=== PATIENT | male | born 1935 | race Caucasian/White ===

== ENCOUNTER 2016-04-25 | Outpatient (CLI) | payer MEDICARE, OTHER | END 2016-04-25 13:01 | disposition home or self-care (01) ==

== ENCOUNTER 2016-05-08 | Outpatient (CLI) | payer MEDICARE, OTHER | END 2016-05-08 11:01 | disposition home or self-care (01) ==

== ENCOUNTER 2016-06-13 10:45 | Outpatient (CLI) | payer MEDICARE, OTHER | END 2016-06-13 10:46 | disposition home or self-care (01) | DX: Z51.5 Encounter for palliative care (principal); L89.890 Pressure ulcer of other site, unstageable; R05 Cough; F03.91 Unspecified dementia, unspecified severity, with behavioral disturbance; M25.512 Pain in left shoulder; M25.511 Pain in right shoulder; H01.009 Unspecified blepharitis unspecified eye, unspecified eyelid; R32 Unspecified urinary incontinence; R33.9 Retention of urine, unspecified; R53.83 Other fatigue; Z66 Do not resuscitate ==

== ENCOUNTER 2016-06-20 14:30 | Outpatient (CLI) | payer MEDICARE, OTHER | END 2016-06-20 14:31 | disposition home or self-care (01) | DX: Z51.5 Encounter for palliative care (principal); J18.9 Pneumonia, unspecified organism; F03.91 Unspecified dementia, unspecified severity, with behavioral disturbance; L89.890 Pressure ulcer of other site, unstageable; M25.519 Pain in unspecified shoulder; R53.83 Other fatigue; Z66 Do not resuscitate ==